=== PATIENT | female | born 1990 | race Caucasian/White ===

== ENCOUNTER 2019-06-04 18:22 | Emergency (ER) | payer SELFPAY ==
[2019-06-04 18:27] VITALS: BP 123/79; PULSE 96; RESP 16; TEMP 36.6; O2SAT 98
--- NOTE | 2019-06-04 18:35 | ED_ITS ---
HPI - Skin/Abscess/Foreign Bdy General Chief complaint: Skin/Abscess/Foreign Body Stated complaint: states infection under left arm Time Seen by Provider: 06/04/19 18:31 Source: patient Mode of arrival: Ambulatory Limitations: no limitations History of Present Illness HPI narrative: 28-year-old female here for evaluation of a infections labs abscess under her left arm. She has had issues like this in the past. Has had to have drainage in the past. She states that the infection today is been going on for the past couple days. Has not tried any antibiotics for. No fevers. Related Data Previous Rx's Medication Instructions Recorded hydroxyzine pamoate 50 mg capsule 50 mg PO QID PRN #90 cap 06/29/18 paroxetine HCl 20 mg tablet 20 mg PO QAM #7 tab 06/29/18 paroxetine HCl 30 mg tablet 30 mg PO QAM #120 tab 06/29/18 doxycycline hyclate 100 mg PO BID 7 Days #14 tab 06/04/19 Allergies Allergy/AdvReac Type Severity Reaction Status Date / Time Penicillins Allergy Mild rash Verified 06/29/18 14:30 Sulfa (Sulfonamide Allergy Mild rash Verified 06/29/18 14:30 Antibiotics) Review of Systems Constitutional Constitutional: Denies fever(s) Cardiovascular Cardiovascular: Denies chest pain and Denies dyspnea Respiratory Respiratory: Denies dyspnea Musculoskeletal Musculoskeletal: Denies myalgias and Denies arthralgias Integumentary/Breasts Skin/Breast: Reports lesions (Under left arm) Neurologic Neurologic: Denies behavioral changes Psychiatric Psychiatric: Denies behavioral changes Patient History Medical History Healthy adult (Acute) Social History Smoking Status: Current every day smoker Smoking Status: Current every day smoker alcohol intake frequency: a few times a month Substance Use Type: marijuana Exam Initial Vital Signs Initial Vital Signs: Vital Signs Temperature 97.8 F 06/04/19 18:27 Pulse Rate 96 H 06/04/19 18:27 Respiratory Rate 16 06/04/19 18:27 Blood Pressure 123/79 06/04/19 18:27 Pulse Oximetry 98 06/04/19 18:27 Resp Effort & Inspection: normal respiratory effort Cardio Rate: regular rate Skin Other: Patient with a large 8 x 6 cm area of induration under the left arm in the axilla. Has a smaller 3 x 3 cm area of redness in the center this. No active draining. Multiple other nodules. Extrem General: capillary refill normal Psych Appearance: grossly normal and well kempt Procedures Abscess I/D I&D #1: Site: other (Left axilla) Side (if applicable): left Local Anesthetic: lidocaine 1% (4 mL) and with bicarb (8 mL of buffered lidocaine) Technique: incised with #11 blade Irrigation: No Packing used?: none Complications: bleeding Course Orders Ordered: Discontinued Medications Acetaminophen/Codeine Phosphate (Tylenol #3 Prepack) 1 bottle MISC SEEINSTR ONE Stop: 06/04/19 18:56 Last Admin: 06/04/19 18:58 Dose: 1 bottle Documented by: PIPER Acetaminophen/Codeine Phosphate (Tylenol #3) 1 tab PO NOW ONE Stop: 06/04/19 18:56 Last Admin: 06/04/19 18:58 Dose: 1 tab Documented by: PIPER Doxycycline Hyclate (Vibramycin) 100 mg PO NOW ONE Stop: 06/04/19 18:37 Last Admin: 06/04/19 18:42 Dose: 100 mg Documented by: PIPER Lidocaine HCl (Xylocaine 1% (Pf)) 4 ml INJ NOW ONE Stop: 06/04/19 18:36 Last Admin: 06/04/19 18:43 Dose: 4 ml Documented by: PIPER Lidocaine/Sodium Bicarbonate (Buffered Lidocaine 10 Ml Syr) 10 ml INJ NOW ONE Stop: 06/04/19 18:46 Last Admin: 06/04/19 18:51 Dose: 10 ml Documented by: PIPER Vital Signs Vital signs: Vital Signs - 8 hr 06/04/19 18:27 06/04/19 19:07 Temperature 97.8 F Pulse Rate 96 H 70 Respiratory Rate 16 16 Blood Pressure 123/79 120/74 Pulse Oximetry 98 97 MDM - Skin/Abscess/Foreign Bdy MDM Narrative Medical decision making narrative: Bedside ultrasound shows large left axillary abscess. This was drained as described above. No packing was placed. No culture was taken. Given the size and location in the area of surrounding redness patient was started on antibiotics. Was given return precautions and follow-up instructions care instructions. Patient expressed understanding and agreement with plan. Discharge Plan Departure Patient Disposition: Home Clinical Impression: Abscess Discharge Date/Time: 06/04/19 19:08 Instructions: DI for Skin Abscess Activity Restrictions/Additional Instructions: Expect some oozing from the incision. Keep it covered with a bandage like we discussed. You can shower like normal. Recommend no shaving her deodorant until the area is healed. Take the antibiotics as directed. You can contact [phone] talk with the health human resources executive here at the hospital to help you establish a primary provider. return to the emergency department for any new or worsening symptoms Prescriptions: New doxycycline hyclate 100 mg tablet 100 mg PO BID 7 Days Qty: 14 RF: 0 No Action paroxetine HCl 20 mg tablet 20 mg PO QAM Qty: 7 RF: 0 hydroxyzine pamoate 50 mg capsule 50 mg PO QID PRN (Reason: anxiety) Qty: 90 RF: 1 paroxetine HCl 30 mg tablet 30 mg PO QAM Qty: 120 RF: 0 Stand Alone Forms: Work Release Note
[2019-06-04] MEDS: DOXYCYCLINE HYCLATE 100 MG TABLET PO (18:42)
[2019-06-04] MEDS: LIDOCAINE 1% (PF) 4 ML INJ (18:43)
[2019-06-04] MEDS: LIDO 1%/SOD BICARB 8.4% (10ML) 10 ML SYRINGE INJ (18:51)
[2019-06-04] MEDS: CODEINE/ACETAMINOPHEN 30/300 TABLET 1 TAB PO (18:58)
[2019-06-04] MEDS: CODEINE/APAP 30/300 PREPACK 1 BOTTLE MISC (18:58)
[2019-06-04 19:07] VITALS: BP 120/74; PULSE 70; RESP 16; O2SAT 97
== END 2019-06-04 19:08 | disposition home or self-care (01) ==
PROVIDERS: Emergency Provider Emergency Medicine
DX: L02.412 Cutaneous abscess of left axilla (principal)
CPT/HCPCS: 10060; 99283; 99284